=== PATIENT | male | born 1970 | race Hispanic/Latino ===

== ENCOUNTER 2018-03-16 19:29 | Emergency (ER) | payer SELFPAY ==
[2018-03-16] MEDS ORDERED: methylPREDNISolone Sod Succ/PF 125 MG/2 ML VIAL ONE (19:31)
[2018-03-16] MEDS ORDERED: Magnesium Sulfate 2 GM/100 ML BAG ONE (19:34)
[2018-03-16] MEDS ORDERED: Albuterol Sulfate 1.25 MG/3 ML NEB ONE ×5 (19:36→20:46)
[2018-03-16 20:02] LABS: #Basophils 0.1 thou/uL (0.0-0.2); #Eosinphils 0.4 thou/uL (0.0-0.7); #Lymphocytes 1.4 thou/uL (1.20-3.40); #Monocytes 0.5 thou/uL (0.11-0.59); #Neutrophils 6.1 thou/uL (1.40-6.50); %Basophils 1.4 % (0.0-1.0); %Eosinophils 4.3 % (0.0-10.0); %Lymphocytes 16.9 % (21.0-51.0); %Monocytes 5.7 % (0.0-10.0); %Neutrophils 71.6 % (42.0-75.0); Hemoglobin 16.6 g/dL (14.0-18.0); Mean Corpuscular HGB CONC 33.8 g/dL (32.0-36.0); Mean Corpuscular Hemoglobin 30.2 pg (27.0-31.0); Mean Corpuscular Volume 89.3 fL (78.0-98.0); Mean Platelet Volume 9.9 fL (7.4-10.4); Platelet Count 239 thou/uL (130-400); RBC Distribution Width 11.8 % (11.5-14.5); Red Blood Cell (RBC) Count 5.52 mill/uL (4.70-6.10); White Blood Cell (WBC) Count 8.5 thou/uL (4.8-10.8)
[2018-03-16 20:18] LABS: CKMB 1.7 ng/mL (0-6.6); Troponin I 0.012 ng/mL (< 0.028)
[2018-03-16 20:19] LABS: ALT (SGPT) 29 U/L (8-55); AST (SGOT) 16 U/L (5-34); Albumin 4.7 g/dL (3.5-5.0); Alkaline Phosphatase 134 U/L (40-150); Anion Gap 14 mmol/L (10-20); BUN (Urea Nitrogen) 16 mg/dL (8.9-20.6); Bilirubin, Total 0.4 mg/dL (0.2-1.2); Calc. Creatinine Clearance 0 mL/min (70-130); Calcium 9.9 mg/dL (7.8-10.44); Carbon Dioxide 26 mmol/L (22-29); Chloride 104 mmol/L (98-107); Estimated GFR-MDRD 85; Globulin 3.1 g/dL (2.4-3.5); Glucose 270 mg/dL (70-105); Potassium 3.7 mmol/L (3.5-5.1); Protein, Total 7.8 g/dL (6.0-8.3); Sodium 140 mmol/L (136-145)
[2018-03-16] MEDS ORDERED: cefTRIAXone\\ROCEPHIN 2 GM VIAL ONE (20:52)
[2018-03-16] MEDS ORDERED: Sodium Chloride 0.9% 100 ML ONE (20:53)
--- NOTE | 2018-03-16 22:38 | RAD ---
PORTABLE CHEST: 03/16/18 An AP portable film at 1930 shows a normal sized heart. There is no congestive change or pleural effu aisha. While there is no lobar consolidation, there is increased markings in the right lower lobe. The possibility of a developing infection here is raised. IMPRESSION: Right lower lobe streaking. POS: HOME
== END 2018-03-16 21:31 | disposition short-term general hospital (02) ==
LOC: BURERS 19:29
DX: J44.1 Chronic obstructive pulmonary disease with (acute) exacerbation (principal); E11.9 Type 2 diabetes mellitus without complications; Z79.899 Other long term (current) drug therapy
CPT/HCPCS: 36416; 71045; 80053; 82553; 83880; 84484; 85025; 94640; 94660; 94760; 96361; 96365; 96375; J0696; J2930; J3475; J7050; J7620